=== PATIENT | male | born 1990 | race Two or more races ===

== ENCOUNTER 2018-07-23 12:35 | Inpatient (IN) | payer MEDICAID, OTHER ==
--- NOTE | 2018-07-23 13:09 | ASMTLCPROG ---
Notes Note: Notes: CIS read and pt signed the Patient Rights while at [facility] and are on ED chart. Date Signed: 07/23/2018 01:09 PM Electronically Signed By:Lucien Gamino
--- NOTE | 2018-07-23 14:00 | EDPHY ---
H & P Smoking Status: Never smoked Time Seen by Provider: 07/23/18 13:43 HPI/ROS: Chief complaint. Overdose HPI. 27-year-old male presents emergency department on an M1 hold after taking for Wellbutrin tablets. He says cocaine and alcohol as well. He was doing this to harm himself and has suicide ideation. He has no chest discomfort or trouble breathing. No abdominal pain or vomiting. Ingestion was early this morning ROS 10 systems were reviewed and negative with the exception of the elements mentioned in the history of present illness (Ramone Rust) Past Medical/Surgical History: Anxiety (Ramone Rust) Social History: Single, nonsmoker, recent alcohol (Ramone Rust) Physical Exam: General Appearance: Alert well-developed male mild distress vital signs are stable Eyes: Pupils equal and round no pallor or injection. ENT, Mouth: Mucous membranes are moist. Respiratory: There are no retractions, lungs are clear to auscultation. Cardiovascular: Regular rate and rhythm. Gastrointestinal: Abdomen is soft and nontender, no masses, bowel sounds normal. Neurological: Awake and alert, sensory and motor exams grossly normal. Skin: Warm and dry, no rashes. Musculoskeletal: Neck is supple nontender. Extremities symmetrical, full range of motion. Psychiatric: Patient is oriented X 3, there is no agitation. (Ramone Rust) Constitutional: Initial Vital Signs Temperature (C) 36.6 C 07/23/18 13:21 Heart Rate 84 07/23/18 13:21 Respiratory Rate 16 07/23/18 13:21 Blood Pressure 132/77 H 07/23/18 13:21 O2 Sat (%) 94 07/23/18 13:21 O2 Delivery Mode Room Air Allergies/Adverse Reactions: No Known Allergies Allergy (Verified 07/23/18 13:21) Home Medications: Medication Instructions Recorded ARIPiprazole [Abilify 10 mg (*)] 10 mg PO DAILY 01/12/16 Propranolol HCl [Inderal 40mg (*)] 40 mg PO 01/12/16 traZODone [traZODONE 100MG (*)] 100 mg PO 01/12/16 Medical Decision Making - Diagnostics EKG Interpretation: EKG interpreted by me shows normal sinus rhythm normal interval. Borderline left axis deviation. QRS is normal there is no significant ST elevation or depression. No arrhythmia. The rate is 83 (Ramone Rust) Other Provider: I assumed care of the patient at 3pm pending psychiatric disposition. Update 9:00 p.m.: The patient has been accepted for inpatient psychiatric hospitalization here at [facility] by Dr. Berry. I have filled out the EMTALA transfer form. (Archie Robb) Care Turn Over: Dr. Robb at 1500 (Ramone Rust) - Data Points Laboratory Results: Laboratory Results 07/23/18 12:45 07/23/18 12:45 07/23/18 07/23/18 07/23/18 15:15 12:45 12:45 WBC 6.53 10^3/uL 10^3/uL (3.80-9.50) RBC 5.75 10^6/uL 10^6/uL (4.40-6.38) Hgb 16.3 g/dL g/dL (13.7-17.5) Hct 49.5 % % (40.0-51.0) MCV 86.1 fL fL (81.5-99.8) MCH 28.3 pg pg (27.9-34.1) MCHC 32.9 g/dL g/dL (32.4-36.7) RDW 13.9 % % (11.5-15.2) Plt Count 319 10^3/uL 10^3/uL (150-400) MPV 9.0 fL fL (8.7-11.7) Neut % (Auto) 60.7 % % (39.3-74.2) Lymph % (Auto) 28.0 % % (15.0-45.0) [place] % (Auto) 8.7 % % (4.5-13.0) Eos % (Auto) 1.8 % % (0.6-7.6) Baso % (Auto) 0.6 % % (0.3-1.7) Nucleat RBC Rel Count 0.0 % % (0.0-0.2) Absolute Neuts (auto) 3.96 10^3/uL 10^3/uL (1.70-6.50) Absolute Lymphs (auto) 1.83 10^3/uL 10^3/uL (1.00-3.00) Absolute Monos (auto) 0.57 10^3/uL 10^3/uL (0.30-0.80) Absolute Eos (auto) 0.12 10^3/uL 10^3/uL (0.03-0.40) Absolute Basos (auto) 0.04 10^3/uL 10^3/uL (0.02-0.10) Absolute Nucleated RBC 0.00 10^3/uL 10^3/uL (0-0.01) Immature Gran % 0.2 % % (0.0-1.1) Immature Gran # 0.01 10^3/uL 10^3/uL (0.00-0.10) Sodium 140 mEq/L mEq/L (135-145) Potassium 3.8 mEq/L mEq/L (3.5-5.2) Chloride 112 mEq/L H mEq/L (97-110) Carbon Dioxide 23 mEq/l mEq/l (22-31) Anion Gap 5 mEq/L L mEq/L (6-14) BUN 10 mg/dL mg/dL (7-23) Creatinine 0.7 mg/dL mg/dL (0.7-1.3) Estimated GFR > 60 Glucose 70 mg/dL mg/dL (70-100) Calcium 7.6 mg/dL L mg/dL (8.5-10.4) Urine Opiates Screen NEGATIVE (NEGATIVE) Acetaminophen < 10 mcg/mL L mcg/mL (10-30) Urine Barbiturates NEGATIVE (NEGATIVE) Ur Phencyclidine Scrn NEGATIVE (NEGATIVE) Ur Amphetamine Screen NEGATIVE (NEGATIVE) U Benzodiazepines Scrn NEGATIVE (NEGATIVE) Urine Cocaine Screen NEGATIVE (NEGATIVE) U Marijuana (THC) Screen NEGATIVE (NEGATIVE) Ethyl Alcohol < 10 mg/dL mg/dL (0-10) Departure - Departure Disposition: [facility] IP Clinical Impression: Suicidal ideation Condition: Good Referrals: NONE *PRIMARY CARE P,. [Primary Care Provider] - As per Instructions
[2018-07-23 14:02] LABS: PLATELET COUNT 319 10^3/uL (150-400)
--- NOTE | 2018-07-23 15:03 | CPEKG ---
Test Reason : OPEN Blood Pressure : / mmHG Vent. Rate : 083 BPM Atrial Rate : 083 BPM P-R Int : 151 ms QRS Dur : 085 ms QT Int : 357 ms P-R-T Axes : 015 -27 002 degrees QTc Int : 420 ms Sinus rhythm Borderline left axis deviation ST elev, probable normal early repol pattern Confirmed by Yojana Rust ([id number]) on 07/23/2018 3:03:02 PM Referred By: YOJANA RUST Confirmed By:Yojana Rust
[2018-07-23] MEDS ORDERED: OLANZapine DISINTEGR 5 MG TAB PO PRN (23:28)
[2018-07-23] MEDS ORDERED: NICOTINE POLACRILEX 2 MG GUM B PRN (23:28)
[2018-07-23] MEDS ORDERED: ACETAMINOPHEN 325 MG TAB PO PRN (23:28)
[2018-07-23] MEDS ORDERED: MAG HYDROX/AL HYDROX/SIMETH 30 ML UDCUP PO PRN (23:28)
[2018-07-23] MEDS ORDERED: MAGNESIUM HYDROXIDE 30 ML UDCUP PO PRN (23:28)
[2018-07-23] MEDS ORDERED: QUEtiapine FUMARATE 200 MG TAB ONE (23:31)
[2018-07-23] MEDS: QUEtiapine FUMARATE 200 MG TAB PO SCH (23:35)
[2018-07-24] MEDS ORDERED: RISPERIDONE 1 MG ODT TAB SL ONE (12:17)
--- NOTE | 2018-07-24 12:44 | ASMTBHMTP ---
Master Treatment Plan Master Treatment Plan Answers: Mood Instability with for: Psychosis Date: 07/24/2018 Diagnosis on Admission: Schizophrenia Expected length of stay: 7 Reason for admission: Notes: Per ED report: "Ct. presentedat the ED on an M1 hold after taking overdose of Wellbutrin. He says cocaine and alcohol as well. He was doing this to harm himself and has suicide ideation". Patient's stated presenting problems: Notes: "I was taking pills, I took a lot of them". Patient's goals for treatment: Notes: Ct. unable to answer. Patient's strengths: Notes: Ct. unable to answer. Identify supports outside of hospital: Notes: Uncle- Aubrey Discharge criteria: Notes: Ct. will demonstrate more stable mood by discharge. Initial disposition plan/considerations: Notes: Ct. will participate in unit activities. Master Treatment Plan Required Signatures Psychiatrist signature: Answers: Willy Fletcher, WILLAMP: RN on-shift signature: Answers: RN: Patient signature: Answers: Patient: Date Signed: 07/24/2018 12:44 PM Electronically Signed By:Yue Santiago
--- NOTE | 2018-07-24 13:07 | ASMTCMCOM ---
CM Note CM Note Notes: CC met with ct. to develop MTP. Ct. presented with very flat affect, delayed respond and difficulty formulating thoughts. He answered most questions with "I don't Know". He reported that his main support system is his uncle which he claimed he lives with. He refused to sign a LIV for uncle. Date Signed: 07/24/2018 01:06 PM Electronically Signed By:Yue Santiago
--- NOTE | 2018-07-24 13:42 | BAPA ---
[f rep st] ADMISSION PSYCHIATRIC ASSESSMENT DATE OF SERVICE: 07/24/2018 CHIEF COMPLAINT: "I don't know. I drank some medications." HISTORY OF PRESENT ILLNESS: From the ED note dated 07/23/2018, patient presented to the emergency department on an M1 hold after taking Wellbutrin tablets. Patient reported recent use of cocaine and alcohol. Patient reported he was doing this to harm himself and reported suicidal ideation. Patient is currently homeless. He has been staying with various family members and with friends since discharged from [facility] on 07/09/2018. Patient is unemployed. Patient self presented at the walk-in clinic with suicidal ideation. Reported that he had overdosed on medications morning prior to presenting to the walk-in clinic. Patient reported command auditory hallucinations to kill himself. Patient was unable to identify the medications and the amount he took and overdose, and stated he vomited them up. Patient requested inpatient psychiatric treatment. Patient was recently assessed at the walk-in clinic on 06/27/2018 after his parents brought him to the walk-in clinic after having broken windows in their apartment on 06/26/2018. Parents were concerned patient expressed suicidal ideation. At that time, patient reported no plan or intent to attempt suicide. Patient had broken windows on 06/26/2018 and reported he wanted to break windows again today because he felt extremely anxious. Patient reported he wanted to break the windows because he saw someone breaking windows on TV to reduced their anxiety. Patient reported he did not get along well with his parents. Patient was admitted to [facility] from the walk-in clinic and discharged on 07/09/2018. Patient presented to the walk- in clinic prior to this admission, was preoccupied, confused, and responding to internal stimuli. Patient had difficulty answering questions, and the accuracy of his responses was unclear. Patient did not return to his parent's home following discharge and had been staying with family members and more recently friends. Patient last saw his outpatient psychiatrist, Dr. Gonzalez on 2018 at [email or web address]. 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 PAST PSYCHIATRIC HISTORY,: Patient has been in outpatient therapy with [facility] since 04/04/2018. Parents reported that patient has not been psychiatrically hospitalized. Patient has a history of auditory hallucinations. Patient reported first auditory hallucinations at age 22. Reported history of feeling "weird and paranoid" during high school. Reported that he felt like everyone around him was looking at him. ALLERGIES: No known allergies. CURRENT MEDICATIONS: 1. Tylenol 650 mg p.o. q.4 hours p.r.n. 2. Ativan 0.5-1 mg p.o. q.4 hours p.r.n. 3. Maalox syrup 30 mL p.o. q.6 hours p.r.n. 4. Milk of magnesia 30 mL p.o. daily p.r.n. 5. Nicorette gum 2 mg q.1 hour p.r.n. 6. Zyprexa 5-10 mg p.o. q.6 hours p.r.n. 7. Seroquel 400 mg p.o. at bedtime. 8. Risperidone 1 mg p.o. q. now. PAST MEDICAL HISTORY: Patient reported having no health issues. Patient denied any allergies. We will continue to gather past medical history throughout the course of the patient's hospitalization. SOCIAL HISTORY: Patient reports no current social supports. Patient reports he was recently in [place] with his mother and would like to return to [place]. Patient reports sexual orientation as heterosexual. Patient currently and most recently lived with his parents who are Dominican-speaking. SUBSTANCE USE HISTORY: Patient reports substance as use of cocaine 1-2 times per week. Patient does not report amount of cocaine use. Patient reports most recently used cocaine prior to this admission. Patient reports no other substance use. Will continue to gather patient history of substance use throughout the course of the patient's hospitalization. FAMILY PSYCHIATRIC HISTORY: Patient reports 2 family members have a diagnosis of schizophrenia. Patient reports no family history of substance abuse. We will continue to gather family psychiatric history throughout the course of the patient's hospitalization. ADMISSION LABS AND STUDIES: 1. CBC within normal limits. 2. BMP within normal limits except chloride was elevated at 112. Anion gap was low at 5. 3. Hemoglobin A1c within normal limits at 5.5. 4. Calcium was low at 7.6. 5. Liver function within normal limits. 6. Lipid panel within normal limits except cholesterol was low at 139, HDL cholesterol was low at 33. 7. Toxicology screen was non-negative for all substances screenED and negative for ethyl alcohol. MENTAL STATUS EXAM: The patient is a well-nourished male looking stated chronological age. Attire is inappropriate. Dress is hospital garb and is disheveled. Grooming status is appropriate. Ambulation is independent. Gait is normal and coordinated. Posture is normal and relaxed. Eye contact is inappropriate, avoided. At times looking at the floor, distractible. At times , also looking at the ceiling. Motor activity is appropriate with purposeful, organized, coordinated movements with no involuntary movements noted. Attitude is uncooperative. The patient is guarded, defensive, and distracted. The patient appears distractible and does not relate well to this interviewer. Language production is un-spontaneous. Rate is hesitant. Latency response is prolonged with monotone, low volume. Amount is monosyllabic to sparse. Articulation is clear, at times somewhat mumbled. The patient reports mood as okay with constricted, flat, and incongruent affect. The patient's thought process is nonlinear and illogical. Thought blocking and disorganized. The patient does not report suicidal or homicidal thoughts, ideas, or plans. The patient reports auditory hallucinations. Patient denies visual hallucinations. The patient denies delusions. The patient appears to be attending to internal stimuli. The patient is oriented to person. The patient's attention and concentration are poor. The patient's insight and judgment are poor. The patient does not report undesirable side effects from current medications. DIAGNOSES: Based on the patient's history and current presentation, the patient 's diagnosis is: 1. Schizophrenia. 2. Homelessness. 3. Stimulant use disorder. 4. Cocaine use disorder. 5. Rule out stimulant induced psychosis. FORMULATION: The patient is a 27-year-old male, single, unemployed most recently living with various friends and family members. The patient reports to be homeless and presents to the hospital involuntarily due to a risk to harm himself and is currently on an M1 hold. The patient requires continued inpatient care because of current acute psychosis and recent suicidal ideation with attempt by overdose. The patient presents with problems of psychosis that has steadily been increasing over the past several weeks. Patient's life has been affected by these problems including recent suicide attempt by overdose. The exacerbation of symptoms was preceded by the potential medication nonadherence and use of cocaine. The patient has a past psychiatric history of psychosis, most recently treated by [facility] on an outpatient basis. Response to treatment has been poor. The patient is a high suicide safety risk due to current acute psychosis, recent suicidal ideation with attempt by overdose. Protective factors while hospitalized include ongoing safety checks, active involvement in treatment and support from our treatment team. Patient could benefit from inpatient hospitalization for safety, crisis stabilization, and medication evaluation. PLAN: 1. Psychotropic medications: After reviewing options, risks, and benefits with the patient, patient agrees to continue medications listed above. No other medication changes at this time as more time is needed to determine ongoing tolerability and efficacy. Plan is to continue to observe patient for response and side effects from medications, and ongoing monitoring and evaluation. 2. Review with patient informed consent and recommendations for psychotropic medication treatment listed below 3. Labs: no additional labs at this time 4. Therapy: continue milieu and group therapy 5. Further investigation including gathering information from patients relatives and review of past case records to inform treatment plan. 6. Safety/Wellness plan and follow-up outpatient appointments to be established prior to discharge. Next steps are for patient to meet with nurse healthcare manager to plan a safe discharge plan and establish outpatient services for ongoing treatment. 7. Confer with inpatient treatment team regarding treatment plan. 8. Address psychosocial stressors by meeting with ocular care technician to establish discharge plan including referrals for outpatient services. 9. Legal status: M1 10. Consider discharge next week if patient is in stable condition, safe, and has a safe discharge plan. 11. Substance abuse interventions: cocaine ESTIMATED LENGTH OF STAY: 7-10 days PSYCHOTROPIC MEDICATION TREATMENT INFORMED CONSENT and RECOMMENDATIONS: Review nature of condition, diagnosis, and prognosis. Review nature and purpose of psychotropic medication treatment. Review type of psychotropic medications being ordered. Review risk and benefits of psychotropic medication treatment. Review probable length of time will need to take medications. Review risk and benefits of not undergoing psychotropic medication treatment. Review alternative treatments to psychotropic medications. Review psychotropic medications contraindications, drug-drug interactions, side effects, and importance of reporting any side effects to a psychiatric provider or nurse during inpatient hospitalization, and upon discharge to patients psychiatric outpatient provider, primary care provider, or other health direct care specialist. Review importance of asking a nurse, psychiatric provider, or primary care provider any questions or problems concerning the psychotropic medications. Verify patient understands the information that has been provided, and understands, accepts, and agrees to psychotropic medications. Review patients safety plan and importance of patient to communicate to staff while hospitalized if patient is ever a danger to self/others, or unable to care for self, and upon discharge, the importance for patient to contact [facility] or 1, or go to the nearest emergency room, if patient is ever a danger to self/others, or unable to care for self. Recommend that upon discharge patient establish medication management treatment with a psychiatric provider, establishes routine therapy appointments, and follow-up with primary care provider. Verify patient understands and agrees to these recommendations. /[id number]/MODL MTDD
--- NOTE | 2018-07-24 15:11 | PDMN ---
Medical Necessity Medical necessity: Pt meets IP criteria per & THIERNO B-[id number]; est los >2 mn for eval/tx of schizophrenia w/acute psychosis & recent suicidal ideation w/ attempted overdose; pt on M! hold due to risk of harm to self; admit for safety , crisis stabilization & med management; hx homelessness; per H&P & order
[2018-07-24] MEDS: QUEtiapine FUMARATE 200 MG TAB PO SCH (20:26)
--- NOTE | 2018-07-24 21:07 | PDHOSCONS ---
History and Physical - Chief Complaint medical mgmt - History of Present Illness This is a 27 yo male that presented to the ED with auditory hallucinations and suicidal ideations and requested hospitalization at behavioral health. He is seen under an M1 hold for suicidal ideations at the behavioral unit. He has a hx of substance abuse, mainly cocaine and some ETOH but otherwise no significant past medical history. He has been evaluated by Psychiatry and per their note he is being treated for Schizophrenia with acute psychosis. He reports that he has a big heart and that he sometimes has difficulty with breathing during exercise and leg swelling. However he denies current pedal edema or sob or hx of cardiomyopathy. He admits to tobacco use he has been afebrile. he does not have any constipation or suicidal ideations history is difficult due to the pts acute psychiatrical illness. He has a hard time with eye contact or answering question consultation was performed in Uzbek which the pt requested History Information - Allergies/Home Medication List Allergies/Adverse Reactions: No Known Allergies Allergy (Verified 07/23/18 13:21) Home Medications: Quetiapine Fumarate [Seroquel Xr] 800 mg PO HS 07/23/18 [Last Taken Unknown] buPROPion XL [Wellbutrin Xl] 150 mg PO DAILY 07/23/18 [Last Taken Unknown] I have personally reviewed and updated: medical history, social history - Social History Smoking Status: Current every day smoker Review of Systems Review of Systems: ROS: 10pt was reviewed & negative except for what was stated in HPI & below Physical Exam Physical Exam: Temp Pulse Resp BP Pulse Ox 36.8 C 92 14 145/80 H 95 07/23/18 23:11 07/23/18 23:11 07/23/18 23:11 07/23/18 23:11 07/23/18 23:11 Constitutional: no apparent distress Eyes: PERRL, EOMI Ears, Nose, Mouth, Throat: moist mucous membranes, hearing normal Cardiovascular: regular rate and rhythym, No edema Respiratory: no respiratory distress, no rales or rhonchi, clear to auscultation Gastrointestinal: normoactive bowel sounds, soft, non-tender abdomen Skin: warm Musculoskeletal: full muscle strength Neurologic: AAOx3 Psychiatric: interacting appropriately, not anxious, not encephalopathic Lymph, Heme, Immunologic: No petechiae Lab Data & Imaging Review 07/23/18 12:45 07/23/18 12:45 WBC 6.53 10^3/uL (3.80-9.50) 07/23/18 12:45 RBC 5.75 10^6/uL (4.40-6.38) 07/23/18 12:45 Hgb 16.3 g/dL (13.7-17.5) 07/23/18 12:45 Hct 49.5 % (40.0-51.0) 07/23/18 12:45 MCV 86.1 fL (81.5-99.8) 07/23/18 12:45 MCH 28.3 pg (27.9-34.1) 07/23/18 12:45 MCHC 32.9 g/dL (32.4-36.7) 07/23/18 12:45 RDW 13.9 % (11.5-15.2) 07/23/18 12:45 Plt Count 319 10^3/uL (150-400) 07/23/18 12:45 MPV 9.0 fL (8.7-11.7) 07/23/18 12:45 Neut % (Auto) 60.7 % (39.3-74.2) 07/23/18 12:45 Lymph % (Auto) 28.0 % (15.0-45.0) 07/23/18 12:45 [place] % (Auto) 8.7 % (4.5-13.0) 07/23/18 12:45 Eos % (Auto) 1.8 % (0.6-7.6) 07/23/18 12:45 Baso % (Auto) 0.6 % (0.3-1.7) 07/23/18 12:45 Nucleat RBC Rel Count 0.0 % (0.0-0.2) 07/23/18 12:45 Absolute Neuts (auto) 3.96 10^3/uL (1.70-6.50) 07/23/18 12:45 Absolute Lymphs (auto) 1.83 10^3/uL (1.00-3.00) 07/23/18 12:45 Absolute Monos (auto) 0.57 10^3/uL (0.30-0.80) 07/23/18 12:45 Absolute Eos (auto) 0.12 10^3/uL (0.03-0.40) 07/23/18 12:45 Absolute Basos (auto) 0.04 10^3/uL (0.02-0.10) 07/23/18 12:45 Absolute Nucleated RBC 0.00 10^3/uL (0-0.01) 07/23/18 12:45 Immature Gran % 0.2 % (0.0-1.1) 07/23/18 12:45 Immature Gran # 0.01 10^3/uL (0.00-0.10) 07/23/18 12:45 Sodium 140 mEq/L (135-145) 07/23/18 12:45 Potassium 3.8 mEq/L (3.5-5.2) 07/23/18 12:45 Chloride 112 mEq/L (97-110) H 07/23/18 12:45 Carbon Dioxide 23 mEq/l (22-31) 07/23/18 12:45 Anion Gap 5 mEq/L (6-14) L 07/23/18 12:45 BUN 10 mg/dL (7-23) 07/23/18 12:45 Creatinine 0.7 mg/dL (0.7-1.3) 07/23/18 12:45 Estimated GFR > 60 07/23/18 12:45 Glucose 70 mg/dL (70-100) 07/23/18 12:45 Hemoglobin A1c 5.5 % (4.0-6.0) 07/23/18 13:58 Estim Average Glucose 111 mg/dL (68-126) 07/23/18 13:58 Calcium 7.6 mg/dL (8.5-10.4) L 07/23/18 12:45 Total Bilirubin 0.2 mg/dL (0.1-1.4) 07/23/18 12:45 Conjugated Bilirubin 0.2 mg/dL (0.0-0.5) 07/23/18 12:45 Unconjugated Bilirubin 0.0 mg/dL (0.0-1.1) 07/23/18 12:45 AST 20 IU/L (17-59) 07/23/18 12:45 ALT 27 IU/L (21-72) 07/23/18 12:45 Alkaline Phosphatase 50 IU/L (38-126) 07/23/18 12:45 Total Protein 6.5 g/dL (6.3-8.2) 07/23/18 12:45 Albumin 3.5 g/dL (3.5-5.0) 07/23/18 12:45 Triglycerides 65 mg/dL (40-150) 07/23/18 12:45 Cholesterol 139 mg/dL (140-200) L 07/23/18 12:45 Cholesterol Risk Factr 0.8 (0.2-1.0) 07/23/18 12:45 LDL Cholesterol, Calc 93 mg/dL (60-100) 07/23/18 12:45 LDL Risk Factor 1.0 (0.2-1.0) 07/23/18 12:45 VLDL Cholesterol 13 mg/dL (8-25) 07/23/18 12:45 Non-HDL Cholesterol 106 mg/dL (90-129) 07/23/18 12:45 HDL Cholesterol 33 mg/dL (40-70) L 07/23/18 12:45 LDL/HDL Ratio 2.82 RATIO (1.00-3.64) 07/23/18 12:45 Cholesterol/HDL Ratio 4.21 RATIO (1.00-4.97) 07/23/18 12:45 Urine Opiates Screen NEGATIVE (NEGATIVE) 07/23/18 15:15 Acetaminophen < 10 mcg/mL (10-30) L 07/23/18 12:45 Urine Barbiturates NEGATIVE (NEGATIVE) 07/23/18 15:15 Ur Phencyclidine Scrn NEGATIVE (NEGATIVE) 07/23/18 15:15 Ur Amphetamine Screen NEGATIVE (NEGATIVE) 07/23/18 15:15 U Benzodiazepines Scrn NEGATIVE (NEGATIVE) 07/23/18 15:15 Urine Cocaine Screen NEGATIVE (NEGATIVE) 07/23/18 15:15 U Marijuana (THC) Screen NEGATIVE (NEGATIVE) 07/23/18 15:15 Ethyl Alcohol < 10 mg/dL (0-10) 07/23/18 12:45 Assessment & Plan Assessment: #Schizophrenia with acute psychosis, suicidal ideations, auditory hallucinations -mgmt per primary #HTN, monitor, no meds for now #Tobacco abuse disorder, on nicotine replacement therapy #possible overdose with Wellbutrin #Drub abuse: Cocaine, ETOH -not with active intoxication #Homelessnes #Reported cardiomyopathy: he does not have any physical exam evidence of this. no e/o volume overload thanks for this consult. we will follow along
[2018-07-25] MEDS ORDERED: QUEtiapine FUMARATE 300 MG TAB PO SCH (06:46)
--- NOTE | 2018-07-25 08:32 | SOAPPROG ---
SOAP Progress Note Assessment/Plan: Assessment: Schizophrenia complicated by substance use; Stimulant Use Disorder, cocaine. No improvement noted (see subjective/objective note). Patient is not safe to discharge at this time as patient continues to exhibit signs of psychosis, and express psychosis symptoms. Patient requires continued inpatient care because of current psychosis, and requires inpatient level of care to stabilize to no longer be gravely disabled due to mental illness. Patient is unable to communicate his basic needs, unable to test reality, and continues to require prompting and direction from staff for ADLs. Patient exhibits inability to provide for himself, neglecting self-care, withdrawn from social interactions, currently shows inability to maintain any appropriate aspect of personal responsibility as an adult, patient becomes agitated and irritable easily and continues exhibited irritable behavior toward staff. Support system has inability to manage functional impairment at lower level of care. Patient could benefit from continued inpatient hospitalization for crisis stabilization , safety, and medication evaluation. Plan: 1. Psychotropic medications: After reviewing options, risks, and benefits patient agrees to continue current medications with following changes: increase Risperidone M-tab to 2 mg po QD and decrease Seroquel to 300 mg po QHS for taper to discontinue. No other medication changes at this time as more time is needed to determine ongoing tolerability and efficacy. Plan is to continue to observe patient for response and side effects from medications, and ongoing monitoring and evaluation. 2. Review with patient informed consent and recommendations for psychotropic medication treatment listed below 3. Labs: no additional labs at this time 4. Therapy: continue milieu and group therapy 5. Further investigation including gathering information from patients relatives and review of past case records to inform treatment plan. 6. Safety/Wellness plan and follow-up outpatient appointments to be established prior to discharge. Next steps are for patient to meet with career based intervention coordinator to plan a safe discharge plan and establish outpatient services for ongoing treatment. 7. Confer with inpatient treatment team regarding treatment plan. 8. Psychosocial stressors addressed through manager rn case 9. Legal status: M1 10. Consider discharge next week if patient is in stable condition, safe, and has a safe discharge plan. 11. Substance abuse interventions: cocaine PSYCHOTROPIC MEDICATION TREATMENT INFORMED CONSENT and RECOMMENDATIONS: Review nature of condition, diagnosis, and prognosis. Review nature and purpose of psychotropic medication treatment. Review type of psychotropic medications being ordered. Review risk and benefits of psychotropic medication treatment. Review probable length of time patient will need to take medications. Review risk and benefits of not undergoing psychotropic medication treatment. Review alternative treatments to psychotropic medications. Review psychotropic medications contraindications, drug-drug interactions, side effects, and importance of reporting any side effects to a psychiatric provider or nurse during inpatient hospitalization, and upon discharge to patients psychiatric outpatient provider, primary care provider, or other health hiv/aids care nurse. Review importance of asking a nurse, psychiatric provider, or primary care provider any questions or problems concerning the psychotropic medications. Verify patient understands the information that has been provided, and understands, accepts, and agrees to psychotropic medications. Review patients safety plan and importance of patient to report to staff while hospitalized if patient is ever a danger to self/others, or unable to care for self, and upon discharge, the importance for patient to contact [facility] or [facility], or go to the nearest emergency room, if patient is ever a danger to self/others, or unable to care for self. Recommend that upon discharge patient establish medication management treatment with a psychiatric provider, establishes routine therapy appointments, and follow-up with primary care provider. Verify patient understands and agrees to these recommendations. 07/25/18 08:33 Subjective: Following up with patient for evaluation of psychosis and safety. Patient reports, "Doing okay I guess. Voices are still there. Hard to explain." Patient expresses the following psychiatric symptoms auditory hallucinations. Patient does not report undesirable side effects from the medications, and agrees to continue current medications. Patient agrees to increase Risperidone M-tab to 2 mg po QD and decrease Seroquel to 300 mg po QHS for taper to discontinue. Patient describes getting 8 hours of sleep. Objective: Vital Signs Temp Pulse Resp BP Pulse Ox 36.5 C 90 18 130/58 H 95 07/25/18 06:00 07/25/18 06:00 07/25/18 06:00 07/25/18 06:00 07/25/18 06:00 NURSING REPORT: Consulted with nursing for update on patients progress in treatment. Nurses report patient is not engaged in treatment, is not attending groups, slept 8 hours, expresses the following psychiatric symptoms: anxiety, exhibits the following psychiatric symptoms: disorganized, thought blocking, withdrawn; patient spent majority of the time isolated in his room; is eating all meals, is agreeable to medications and taking as prescribed with no report of side effects, with no s/s of EPS/akathisia, and denies SI/HI, reports AH, denies VH, and denies delusions. MSE: The patient is a well-nourished male looking stated chronological age. Attire is appropriate dress is casual. Grooming status is inappropriate and disheveled. Ambulation is independent. Gait is normal and coordinated. Posture is normal. Eye contact is inappropriate and staring. Motor activity is appropriate with purposeful, organized, coordinated movements; with no involuntary movements. Attitude is uncooperative, defensive and guarded at times. Patient appears distractible and does not relate well to this interviewer. Language production is spontaneous. Rate is hesitant. Latency of response is prolonged. Articulation is clear. Patient reports mood as okay with flat, constricted, and inappropriate affect. Patients thought process is disorganized, non-linear and illogical, with loose associations, nonsensical, and thought blocking. Patient does not report suicidal/homicidal thoughts, ideas, or plans. Patient denies auditory, visual hallucinations. Patient reports delusions. Patient does not appear to be attending to internal stimuli. Patients attention and concentration are poor. Patient is oriented to person, place, and time. Patients insight is poor. Patients judgment is poor. SUBSTANCE ABUSE BRIEF INTERVENTION: Brief intervention regarding the risks of cocaine abuse is provided to patient with goal to reduce the risk of harm that could result from the continued use of cocaine, with the general aim to investigate the problem, raise awareness of problem, develop a solution with the patient, recommend a specific change or activity, and motivate the patient toward change. Assess substance abuse behavior and give supportive advice about harm reduction, recommend a reduction in hazardous/at-risk consumption patterns, and facilitate referrals for additional specialized treatment with home care attendant. Intermediate goal is for the patient to quit/decrease frequency of use/attend a NA/AA meeting. Intervention focus on intermediate goals to allow for more immediate success in the treatment process to keep the patient motivated. Review following with patient: Cocaine use risks: Short-term : erratic and violent behavior, panic attacks, paranoia, psychosis; heart rhythm problems, heart attack; stroke, seizure, coma. Long-term: Loss of sense of smell, nosebleeds, nasal damage and trouble swallowing from snorting; infection and of bowel tissue from decreased blood flow; poor nutrition and weight loss; lung damage from smoking. OUTPATIENT SUBSTANCE ABUSE TREATMENT: Patient referred to outpatient provider and treatment for continued treatment related to substance abuse. - Time Spent With Patient Time Spent With Patient: 15 minutes, met with patient individually. 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
[2018-07-25] MEDS ORDERED: RISPERIDONE 1 MG ODT TAB SL SCH (09:00)
--- NOTE | 2018-07-25 11:46 | ASMTCMCOM ---
CM Note CM Note Notes: CC checked in with ct. Ct. continues to isolate in his room and is coming out mostly for meals. Ct. continues to report SI. Parents came to visit ct. yesterday but her refused to meet them. He told CC that he doesn't want to see his dad but was unable to explain why. Date Signed: 07/25/2018 11:46 AM Electronically Signed By:Yue Santiago
--- NOTE | 2018-07-26 07:55 | SOAPPROG ---
SOAP Progress Note Assessment/Plan: Assessment: Schizophrenia complicated by substance use; Stimulant Use Disorder, cocaine. No improvement noted (see subjective/objective note). Patient is not safe to discharge at this time as patient continues to exhibit signs of psychosis, and express psychosis symptoms. Patient requires continued inpatient care because of current psychosis, and requires inpatient level of care to stabilize to no longer be gravely disabled due to mental illness. Patient is unable to communicate his basic needs, unable to test reality, and continues to require prompting and direction from staff for ADLs. Patient exhibits inability to provide for himself, neglecting self-care, withdrawn from social interactions, currently shows inability to maintain any appropriate aspect of personal responsibility as an adult, patient becomes agitated and irritable easily and continues exhibited irritable behavior toward staff. Support system has inability to manage functional impairment at lower level of care. Patient could benefit from continued inpatient hospitalization for crisis stabilization , safety, and medication evaluation. Plan: 1. Psychotropic medications: After reviewing options, risks, and benefits patient agrees to continue current medications with following changes: increase Risperidone M-tab to 3 mg po QD and decrease Seroquel to 200 mg po QHS for taper to discontinue. No other medication changes at this time as more time is needed to determine ongoing tolerability and efficacy. Plan is to continue to observe patient for response and side effects from medications, and ongoing monitoring and evaluation. 2. Review with patient informed consent and recommendations for psychotropic medication treatment listed below 3. Labs: no additional labs at this time 4. Therapy: continue milieu and group therapy 5. Further investigation including gathering information from patients relatives and review of past case records to inform treatment plan. 6. Safety/Wellness plan and follow-up outpatient appointments to be established prior to discharge. Next steps are for patient to meet with healthcare advisory services manager to plan a safe discharge plan and establish outpatient services for ongoing treatment. 7. Confer with inpatient treatment team regarding treatment plan. 8. Psychosocial stressors addressed through case management coordinator 9. Legal status: M1 10. Consider discharge next week if patient is in stable condition, safe, and has a safe discharge plan. 11. Substance abuse interventions: cocaine PSYCHOTROPIC MEDICATION TREATMENT INFORMED CONSENT and RECOMMENDATIONS: Review nature of condition, diagnosis, and prognosis. Review nature and purpose of psychotropic medication treatment. Review type of psychotropic medications being ordered. Review risk and benefits of psychotropic medication treatment. Review probable length of time patient will need to take medications. Review risk and benefits of not undergoing psychotropic medication treatment. Review alternative treatments to psychotropic medications. Review psychotropic medications contraindications, drug-drug interactions, side effects, and importance of reporting any side effects to a psychiatric provider or nurse during inpatient hospitalization, and upon discharge to patients psychiatric outpatient provider, primary care provider, or other health managed care nurse. Review importance of asking a nurse, psychiatric provider, or primary care provider any questions or problems concerning the psychotropic medications. Verify patient understands the information that has been provided, and understands, accepts, and agrees to psychotropic medications. Review patients safety plan and importance of patient to report to staff while hospitalized if patient is ever a danger to self/others, or unable to care for self, and upon discharge, the importance for patient to contact [facility] or [facility], or go to the nearest emergency room, if patient is ever a danger to self/others, or unable to care for self. Recommend that upon discharge patient establish medication management treatment with a psychiatric provider, establishes routine therapy appointments, and follow-up with primary care provider. Verify patient understands and agrees to these recommendations. 07/26/18 07:54 Subjective: Following up with patient for evaluation of psychosis and safety. Patient reports, "Doing okay. Voices still there. Worse." Patient expresses the following psychiatric symptoms auditory hallucinations. Patient does not report undesirable side effects from the medications, and agrees to continue current medications. Patient agrees to increase Risperidone M-tab to 3 mg po QD and decrease Seroquel to 200 mg po QHS for taper to discontinue. Patient describes getting 8 hours of sleep. Objective: Vital Signs Temp Pulse Resp BP Pulse Ox 36.8 C 92 16 115/57 L 95 07/26/18 06:00 07/26/18 06:00 07/26/18 06:00 07/26/18 06:00 07/26/18 06:00 NURSING REPORT: Consulted with nursing for update on patients progress in treatment. Nurses report patient is not engaged in treatment, is not attending groups, slept 8 hours, expresses the following psychiatric symptoms: anxiety, exhibits the following psychiatric symptoms: disorganized, thought blocking, withdrawn; is eating all meals, is agreeable to medications and taking as prescribed with no report of side effects, with no s/s of EPS/akathisia, and denies SI/HI, reports AH, denies VH, and denies delusions. MSE: The patient is a well-nourished male looking stated chronological age. Attire is appropriate dress is casual. Grooming status is inappropriate and disheveled. Ambulation is independent. Gait is normal and coordinated. Posture is normal. Eye contact is inappropriate and staring. Motor activity is appropriate with purposeful, organized, coordinated movements; with no involuntary movements. Attitude is cooperative, defensive and guarded at times. Patient appears distractible and does not relate well to this interviewer. Language production is spontaneous. Rate is hesitant. Latency of response is prolonged. Articulation is clear. Patient reports mood as okay with flat, constricted, and inappropriate affect. Patients thought process is disorganized, non-linear and illogical, with loose associations, nonsensical, and thought blocking. Patient does not report suicidal/homicidal thoughts, ideas, or plans. Patient denies auditory, visual hallucinations. Patient reports delusions. Patient does not appear to be attending to internal stimuli. Patients attention and concentration are poor. Patient is oriented to person, place, and time. Patients insight is poor. Patients judgment is poor. SUBSTANCE ABUSE BRIEF INTERVENTION: Brief intervention regarding the risks of cocaine abuse is provided to patient with goal to reduce the risk of harm that could result from the continued use of cocaine, with the general aim to investigate the problem, raise awareness of problem, develop a solution with the patient, recommend a specific change or activity, and motivate the patient toward change. Assess substance abuse behavior and give supportive advice about harm reduction, recommend a reduction in hazardous/at-risk consumption patterns, and facilitate referrals for additional specialized treatment with healthcare customer service. Intermediate goal is for the patient to quit/decrease frequency of use/attend a NA/AA meeting. Intervention focus on intermediate goals to allow for more immediate success in the treatment process to keep the patient motivated. Review following with patient: Cocaine use risks: Short-term : erratic and violent behavior, panic attacks, paranoia, psychosis; heart rhythm problems, heart attack; stroke, seizure, coma. Long-term: Loss of sense of smell, nosebleeds, nasal damage and trouble swallowing from snorting; infection and of bowel tissue from decreased blood flow; poor nutrition and weight loss; lung damage from smoking. OUTPATIENT SUBSTANCE ABUSE TREATMENT: Patient referred to outpatient provider and treatment for continued treatment related to substance abuse. - Time Spent With Patient Time Spent With Patient: 15 minutes, met with patient individually. 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
[2018-07-26] MEDS: RISPERIDONE 1 MG ODT TAB SL SCH (08:27)
--- NOTE | 2018-07-26 14:26 | ASMTCMCOM ---
CM Note CM Note Notes: The patient presented as calm, cooperative, and with poor eye contact. He reported that he was feeling "dizzy" after starting new medication; nursing was advised. He also reported feeling "confusion" and having random bursts of "laughter." The patient reported that he receives outpatient treatment at [facility] in [place] and completed an LIV. This property underwriter discussed collateral with the [facility] Inpatient Liaison. Date Signed: 07/26/2018 02:25 PM Electronically Signed By:Safia Saucedo
[2018-07-26] MEDS: LORazepam 0.5 MG TAB PO PRN (16:16)
[2018-07-26] MEDS ORDERED: QUEtiapine FUMARATE 200 MG TAB PO SCH (21:00)
[2018-07-27] MEDS: RISPERIDONE 1 MG ODT TAB SL SCH (09:26)
[2018-07-27] MEDS: LORazepam 0.5 MG TAB PO PRN ×2 (12:41→18:31)
[2018-07-27] MEDS ORDERED: QUEtiapine FUMARATE 100 MG TAB PO SCH (18:14)
--- NOTE | 2018-07-27 18:22 | SOAPPROG ---
SOAP Progress Note Assessment/Plan: Assessment: 27-year-old male presents emergency department on an M1 hold after taking for Wellbutrin tablets. He says cocaine and alcohol as well. He was doing this to harm himself and has suicide ideation. EKG was NSR. WEEKEND PLAN: 07/27/18 18:[address] patient on M1 hold. He was made voluntary on Sunday by Willy Fletcher, and was asking to discharge today. He remains acutely psychotic, endorsing CAH to harm himself, with recent OD attempt on 07/23/18. Patient is gravely disabled and not safe to leave hospital. 2. Patient is compliant with meds and denies any SE's from Risperdal. MD does not note any s/s of EPS or dystonia. 3. Hospitalist noted elevated BP, and recommends continued monitoring for now. 4. Will need f/u with [facility] at discharge. Subjective: Patient is sitting in rocking chair. Earlier he was telling staff he wanted to leave. Other times, he says he's OK to stay. MD placed patient on M1 hold b/c he remains acutely psychotic and had recent CAH telling him to kill himself which is why he took OD of Wellbutrin while drinking ETOH and using cocaine. When asked about SI today, patient said he was having a "little bit," but later rated himself a 0 out of 10. Objective: Vital Signs Temp Pulse Resp BP Pulse Ox 36.4 C 100 16 112/64 95 07/27/18 06:00 07/27/18 06:00 07/27/18 06:00 07/27/18 06:00 07/27/18 06:00 MSE: Affect: Flat Mood: "Good" TP: Disorganized, difficulty completing sentences TC: "A little bit" of SI, but later said "zero" Perception: Endorsed AH today, but denies commands to hurt himself Insight/Judgment: Impaired - Time Spent With Patient Time Spent With Patient: 15" - Pending Discharge Pending Discharge Within 24 Hours: No Pending Discharge Within 48 Hours: No ICD10 Worksheet Patient Problems: Problems Problem Status Onset Alcohol use disorder, moderate, dependence Acute Cocaine abuse Acute Stimulant abuse Acute Stimulant-induced psychotic disorder with hallucinations Acute Suicidal ideation Acute Unspecified psychosis Acute
[2018-07-28] MEDS: RISPERIDONE 1 MG ODT TAB SL SCH (08:29)
[2018-07-28] MEDS: LORazepam 0.5 MG TAB PO PRN (12:35)
--- NOTE | 2018-07-28 15:35 | ASMTCMCOM ---
CM Note CM Note Notes: According to [facility] staff, the patient requested to see a escapement matcher. This sign writer letterer or painter asked the patient whether he would like to speak in vietnamese or czech. The patient requested to speak in vietnamese; this sign writer letterer or painter and the patient utilized an processing tech for this interaction. The patient reported that "everything is good." He asked to be notified when he will be able to discharge. He stated, "I'm feeling like I would like to go home." He reported he has been living with relatives in [place]. The patient reported that he has not had contact with his parents or relatives because he "doesn't like talking to them or visiting with them in these situations." The patient denied SI, HI, or A/VH. The patient was observed giggling. Date Signed: 07/28/2018 03:34 PM Electronically Signed By:Safia Saucedo
--- NOTE | 2018-07-28 19:03 | SOAPPROG ---
SOAP Progress Note Assessment/Plan: Assessment: 27-year-old male presents emergency department on an M1 hold after taking for Wellbutrin tablets. He says cocaine and alcohol as well. He was doing this to harm himself and has suicide ideation. EKG was NSR. WEEKEND PLAN: 07/27/18 18:[address] patient on M1 hold. He was made voluntary on Sunday by Willy Fletcher, and was asking to discharge today. He remains acutely psychotic, endorsing CAH to harm himself, with recent OD attempt on 07/23/18. Patient is gravely disabled and not safe to leave hospital. 2. Patient is compliant with meds and denies any SE's from Risperdal. MD does not note any s/s of EPS or dystonia. 3. Hospitalist noted elevated BP, and recommends continued monitoring for now. 4. Will need f/u with [facility] at discharge. 07/28/18 19:00 1. Patient reports feeling anxious and wants to talk to his family on phone. He refused a family visit earlier in week b/c he doesn't want them to see him in hospital. However, tonight he allowed family to come visit and felt more relaxed and calm after. 2. CC spoke with patient's UOC. Family would prefer patient go live with his POCs in [place] after discharge. They can do better job supervising him than his AOC in [place]. They didn't know patient was using THC and cocaine and not taking his meds. They agree to monitor him and take him to his OP appt at [facility]. 3. Patient denies any AH/VH and SI today. 4. M1 expires on 07/30/18 Subjective: Patient came up to MD to ask if he can leave. He says he is feeling "anxious" and wants to talk to his parents. MD explained patient is on M1 hold, and treatment team wants to know patient has safe place to go when he leaves hospital. He says he can stay with his parents. He agreed to discuss it with them when they come for a visit tonight. After seeing his family tonight, patient felt much "better." Objective: Vital Signs Temp Pulse Resp BP Pulse Ox 36.6 C 92 15 117/65 95 07/28/18 06:00 07/28/18 06:00 07/28/18 06:00 07/28/18 06:00 07/28/18 06:00 MSE: Affect: Anxious at time, other times calm and relaxed Mood: "OK" "Anxious " TP: Linear, mostly TC: Denies any SI/HI, still guarded and possibly paranoid Perception: Denies any AH/VH Insight/Judgment: Poor - Time Spent With Patient Time Spent With Patient: 15" - Pending Discharge Pending Discharge Within 24 Hours: No Pending Discharge Within 48 Hours: No ICD10 Worksheet Patient Problems: Problems Problem Status Onset Alcohol use disorder, moderate, dependence Acute Cocaine abuse Acute Stimulant abuse Acute Stimulant-induced psychotic disorder with hallucinations Acute Suicidal ideation Acute Unspecified psychosis Acute
[2018-07-28] MEDS: QUEtiapine FUMARATE 100 MG TAB PO SCH (19:13)
[2018-07-29] MEDS ORDERED: PALIPERIDONE PALMITATE 234 MG/1.5 ML SYR IM ONE ×2 (07:02→10:15)
--- NOTE | 2018-07-29 08:33 | SOAPPROG ---
SOAP Progress Note Assessment/Plan: Assessment: Schizophrenia complicated by substance use; Stimulant Use Disorder, cocaine. Improvement noted (see subjective/objective note). Patient is not safe to discharge at this time as patient continues to exhibit signs of psychosis, and express psychosis symptoms. Patient requires continued inpatient care because of current psychosis, and requires inpatient level of care to stabilize to no longer be gravely disabled due to mental illness. Patient is unable to communicate his basic needs, unable to test reality, and continues to require prompting and direction from staff for ADLs. Patient exhibits inability to provide for himself, neglecting self-care, withdrawn from social interactions, currently shows inability to maintain any appropriate aspect of personal responsibility as an adult. Support system has inability to manage functional impairment at lower level of care. Patient could benefit from OLSON prior to discharge to improve adherence. Patient could benefit from continued inpatient hospitalization for crisis stabilization, safety, and medication evaluation. Plan: 1. Psychotropic medications: After reviewing options, risks, and benefits patient agrees to continue current medications and agrees to Invega Sustenna prior to discharge with first loading dose 234 mg IM today and second loading dose 156 mg IM on prior to discharge. No other medication changes at this time as more time is needed to determine ongoing tolerability and efficacy. Plan is to continue to observe patient for response and side effects from medications, and ongoing monitoring and evaluation. 2. Review with patient informed consent and recommendations for psychotropic medication treatment listed below 3. Labs: no additional labs at this time 4. Therapy: continue milieu and group therapy 5. Further investigation including gathering information from patients relatives and review of past case records to inform treatment plan. 6. Safety/Wellness plan and follow-up outpatient appointments to be established prior to discharge. Next steps are for patient to meet with director critical care to plan a safe discharge plan and establish outpatient services for ongoing treatment. 7. Confer with inpatient treatment team regarding treatment plan. 8. Psychosocial stressors addressed through casework manager 9. Legal status: M1 placed on 07/27/18 10. Consider discharge next week if patient is in stable condition, safe, and has a safe discharge plan. 11. Substance abuse interventions: cocaine PSYCHOTROPIC MEDICATION TREATMENT INFORMED CONSENT and RECOMMENDATIONS: Review nature of condition, diagnosis, and prognosis. Review nature and purpose of psychotropic medication treatment. Review type of psychotropic medications being ordered. Review risk and benefits of psychotropic medication treatment. Review probable length of time patient will need to take medications. Review risk and benefits of not undergoing psychotropic medication treatment. Review alternative treatments to psychotropic medications. Review psychotropic medications contraindications, drug-drug interactions, side effects, and importance of reporting any side effects to a psychiatric provider or nurse during inpatient hospitalization, and upon discharge to patients psychiatric outpatient provider, primary care provider, or other health reservoir caretaker. Review importance of asking a nurse, psychiatric provider, or primary care provider any questions or problems concerning the psychotropic medications. Verify patient understands the information that has been provided, and understands, accepts, and agrees to psychotropic medications. Review patients safety plan and importance of patient to report to staff while hospitalized if patient is ever a danger to self/others, or unable to care for self, and upon discharge, the importance for patient to contact [facility] or [facility], or go to the nearest emergency room, if patient is ever a danger to self/others, or unable to care for self. Recommend that upon discharge patient establish medication management treatment with a psychiatric provider, establishes routine therapy appointments, and follow-up with primary care provider. Verify patient understands and agrees to these recommendations. 07/29/18 08:35 Subjective: Following up with patient for evaluation of psychosis and safety. Patient reports, "Doing good, yep, doing good." Patient expresses the following psychiatric symptoms none. Patient does not report undesirable side effects from the medications, and agrees to continue current medications. Patient agrees to Invega Sustenna prior to discharge with first loading dose 234 mg IM today and second loading dose 156 mg IM on prior to discharge. Objective: Vital Signs Temp Pulse Resp BP Pulse Ox 36.4 C 96 15 118/60 95 07/29/18 06:00 07/29/18 06:00 07/29/18 06:00 07/29/18 06:00 07/29/18 06:00 NURSING REPORT: Consulted with nursing for update on patients progress in treatment. Nurses report patient is not engaged in treatment, is not attending groups, slept 8 hours, expresses the following psychiatric symptoms: anxiety, exhibits the following psychiatric symptoms: disorganized, thought blocking, withdrawn; is eating all meals, is agreeable to medications and taking as prescribed with no report of side effects, with no s/s of EPS/akathisia, and denies SI/HI, denies AH, denies VH, and denies delusions. MD REPORT FROM WEEKEND: placed on mental health hold; agrees to stay with POC after discharge. MSE: The patient is a well-nourished male looking stated chronological age. Attire is appropriate dress is casual. Grooming status is inappropriate and disheveled. Ambulation is independent. Gait is normal and coordinated. Posture is normal. Eye contact is inappropriate and staring. Motor activity is appropriate with purposeful, organized, coordinated movements; with no involuntary movements. Attitude is cooperative, defensive and guarded at times. Patient appears distractible and does not relate well to this interviewer. Language production is spontaneous. Rate is hesitant. Latency of response is prolonged. Articulation is clear. Patient reports mood as okay with flat, constricted, and inappropriate affect. Patients thought process is disorganized, non-linear and illogical, with loose associations, nonsensical, and thought blocking. Patient does not report suicidal/homicidal thoughts, ideas, or plans. Patient denies auditory, visual hallucinations. Patient reports delusions. Patient does not appear to be attending to internal stimuli. Patients attention and concentration are poor. Patient is oriented to person, place, and time. Patients insight is poor. Patients judgment is poor. SUBSTANCE ABUSE BRIEF INTERVENTION: Brief intervention regarding the risks of cocaine abuse is provided to patient with goal to reduce the risk of harm that could result from the continued use of cocaine, with the general aim to investigate the problem, raise awareness of problem, develop a solution with the patient, recommend a specific change or activity, and motivate the patient toward change. Assess substance abuse behavior and give supportive advice about harm reduction, recommend a reduction in hazardous/at-risk consumption patterns, and facilitate referrals for additional specialized treatment with health and social care teacher. Intermediate goal is for the patient to quit/decrease frequency of use/attend a NA/AA meeting. Intervention focus on intermediate goals to allow for more immediate success in the treatment process to keep the patient motivated. Review following with patient: Cocaine use risks: Short-term : erratic and violent behavior, panic attacks, paranoia, psychosis; heart rhythm problems, heart attack; stroke, seizure, coma. Long-term: Loss of sense of smell, nosebleeds, nasal damage and trouble swallowing from snorting; infection and of bowel tissue from decreased blood flow; poor nutrition and weight loss; lung damage from smoking. OUTPATIENT SUBSTANCE ABUSE TREATMENT: Patient referred to outpatient provider and treatment for continued treatment related to substance abuse. - Time Spent With Patient Time Spent With Patient: 15 minutes, met with patient individually. 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
[2018-07-29] MEDS: RISPERIDONE 1 MG ODT TAB SL SCH (08:35)
[2018-07-29] MEDS: LORazepam 0.5 MG TAB PO PRN (10:27)
--- NOTE | 2018-07-29 14:02 | ASMTBHFAM ---
Notes Note: Notes: Per Fawad, he was unable to visit the patient yesterday. The patient was visited by his mother and cousin. They reported to Fawad is "doing much better. His behavior is different from one week ago. He was able to make conversations." He expressed interest in looking for employment. The patient is still unwilling to speak to his father because he refused pay for the patient to move to [place]. The patient requested to speak in syriac with this contract technical writer; an high lighter was used. The patient reported that he feels "anxious" to return home and that he also felt "anxious" in the group he attended this morning. The patient denied SI, HI, A/VH. He was visited by his mother and cousin yesterday; he discussed living with his parents upon discharge and his family agreed that this would be appropriate. The patient denied interest in moving to [place] and reported that although he did not want to talk with his father at the time, he would be willing to talk with him. The patient expressed gratitude for receiving a Bible. The patient was observed using intermittent eye contact and infrequently giggling to himself. Date Signed: 07/29/2018 12:19 PM Electronically Signed By:Safia Saucedo
[2018-07-29] MEDS: QUEtiapine FUMARATE 100 MG TAB PO SCH (19:40)
[2018-07-30] MEDS: RISPERIDONE 1 MG ODT TAB SL SCH (07:45)
--- NOTE | 2018-07-30 09:00 | SOAPPROG ---
SOAP Progress Note Assessment/Plan: Assessment: Schizophrenia. Slight improvement noted; notably patient no longer expressing AH (see subjective/objective note). Patient is not safe to discharge at this time as patient continues to exhibit signs of psychosis, and express psychosis symptoms. Patient requires continued inpatient care because of current psychosis, and requires inpatient level of care to stabilize to no longer be gravely disabled due to mental illness. Patient is unable to communicate his basic needs, unable to test reality, and continues to require prompting and direction from staff for ADLs. Patient exhibits inability to provide for himself, neglecting self-care, withdrawn from social interactions, currently shows inability to maintain any appropriate aspect of personal responsibility as an adult. Support system has inability to manage functional impairment at lower level of care. Due to patients history of medication non-adherence, patient could benefit from OLSON prior to discharge with second loading dose of Invega Sustenna scheduled to be administered on . Patient could benefit from continued inpatient hospitalization for crisis stabilization, safety, and medication evaluation. Plan: 1. Psychotropic medications: After reviewing options, risks, and benefits patient agrees to continue current medications and agrees to Invega Sustenna second loading dose 156 mg IM on prior to discharge. No other medication changes at this time as more time is needed to determine ongoing tolerability and efficacy. Plan is to continue to observe patient for response and side effects from medications, and ongoing monitoring and evaluation. 2. Review with patient informed consent and recommendations for psychotropic medication treatment listed below 3. Labs: no additional labs at this time 4. Therapy: continue milieu and group therapy 5. Further investigation including gathering information from patients relatives and review of past case records to inform treatment plan. 6. Safety/Wellness plan and follow-up outpatient appointments to be established prior to discharge. Next steps are for patient to meet with housekeeper caregiver to plan a safe discharge plan and establish outpatient services for ongoing treatment. 7. Confer with inpatient treatment team regarding treatment plan. 8. Psychosocial stressors addressed through upper caser 9. Legal status: M1 10. Consider discharge next week if patient is in stable condition, safe, and has a safe discharge plan. 11. Substance abuse interventions: cocaine PSYCHOTROPIC MEDICATION TREATMENT INFORMED CONSENT and RECOMMENDATIONS: Review nature of condition, diagnosis, and prognosis. Review nature and purpose of psychotropic medication treatment. Review type of psychotropic medications being ordered. Review risk and benefits of psychotropic medication treatment. Review probable length of time patient will need to take medications. Review risk and benefits of not undergoing psychotropic medication treatment. Review alternative treatments to psychotropic medications. Review psychotropic medications contraindications, drug-drug interactions, side effects, and importance of reporting any side effects to a psychiatric provider or nurse during inpatient hospitalization, and upon discharge to patients psychiatric outpatient provider, primary care provider, or other health career consultant. Review importance of asking a nurse, psychiatric provider, or primary care provider any questions or problems concerning the psychotropic medications. Verify patient understands the information that has been provided, and understands, accepts, and agrees to psychotropic medications. Review patients safety plan and importance of patient to report to staff while hospitalized if patient is ever a danger to self/others, or unable to care for self, and upon discharge, the importance for patient to contact [facility] or [facility], or go to the nearest emergency room, if patient is ever a danger to self/others, or unable to care for self. Recommend that upon discharge patient establish medication management treatment with a psychiatric provider, establishes routine therapy appointments, and follow-up with primary care provider. Verify patient understands and agrees to these recommendations. 07/30/18 08:58 Subjective: Following up with patient for evaluation of psychosis and safety. Patient reports, "Doing good, yes, doing okay." Patient expresses the following psychiatric symptoms none. Patient denies AH. Patient does not report undesirable side effects from the medications, and agrees to continue current medications. Patient agrees to Invega Sustenna second loading dose 156 mg IM on prior to discharge. Objective: Vital Signs Temp Pulse Resp BP Pulse Ox 36.6 C 92 14 134/69 H 96 07/30/18 06:00 07/30/18 06:00 07/30/18 06:00 07/30/18 06:00 07/30/18 06:00 NURSING REPORT: Consulted with nursing for update on patients progress in treatment. Nurses report patient is not engaged in treatment, is attending some groups, slept 8 hours, expresses the following psychiatric symptoms: anxiety, exhibits the following psychiatric symptoms: disorganized, thought blocking, withdrawn, appears to be attending to internal stimuli; is eating all meals, is agreeable to medications and taking as prescribed with no report of side effects, with no s/s of EPS/akathisia, and denies SI/HI, denies AH, denies VH, and denies delusions. MSE: The patient is a well-nourished male looking stated chronological age. Attire is appropriate dress is casual. Grooming status is appropriate. Ambulation is independent. Gait is normal and coordinated. Posture is normal. Eye contact is appropriate. Motor activity is appropriate with purposeful, organized, coordinated movements; with no involuntary movements. Attitude is cooperative. Patient appears distractible and does not relate well to this interviewer. Language production is spontaneous. Rate is hesitant. Latency of response is prolonged. Articulation is clear. Patient reports mood as okay with flat, constricted, and inappropriate affect. Patients thought process is disorganized, non-linear and illogical, with loose associations, nonsensical, and thought blocking. Patient does not report suicidal/homicidal thoughts, ideas, or plans. Patient denies auditory, visual hallucinations. Patient denies delusions. Patient appears to be attending to internal stimuli. Patients attention and concentration are poor. Patient is oriented to person, place, and time. Patients insight is poor. Patients judgment is poor. SUBSTANCE ABUSE BRIEF INTERVENTION: Brief intervention regarding the risks of cocaine abuse is provided to patient with goal to reduce the risk of harm that could result from the continued use of cocaine, with the general aim to investigate the problem, raise awareness of problem, develop a solution with the patient, recommend a specific change or activity, and motivate the patient toward change. Assess substance abuse behavior and give supportive advice about harm reduction, recommend a reduction in hazardous/at-risk consumption patterns, and facilitate referrals for additional specialized treatment with progressive care nurse. Intermediate goal is for the patient to quit/decrease frequency of use/attend a NA/AA meeting. Intervention focus on intermediate goals to allow for more immediate success in the treatment process to keep the patient motivated. Review following with patient: Cocaine use risks: Short-term : erratic and violent behavior, panic attacks, paranoia, psychosis; heart rhythm problems, heart attack; stroke, seizure, coma. Long-term: Loss of sense of smell, nosebleeds, nasal damage and trouble swallowing from snorting; infection and of bowel tissue from decreased blood flow; poor nutrition and weight loss; lung damage from smoking. OUTPATIENT SUBSTANCE ABUSE TREATMENT: Patient referred to outpatient provider and treatment for continued treatment related to substance abuse. - Time Spent With Patient Time Spent With Patient: 15 minutes, met with patient individually. 

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
[2018-07-30] MEDS: QUEtiapine FUMARATE 100 MG TAB PO SCH (20:25)
[2018-07-31] MEDS: RISPERIDONE 1 MG ODT TAB SL SCH (07:54)
--- NOTE | 2018-07-31 08:08 | SOAPPROG ---
SOAP Progress Note Assessment/Plan: Assessment: Schizophrenia. Slight improvement noted; notably patient no longer expressing AH; continues to exhibit signs of attending to internal stimuli as observed by this KAYAK MAKER and staff (see subjective/objective note). Patient is not safe to discharge at this time as patient continues to exhibit signs of psychosis, and express psychosis symptoms. Patient requires continued inpatient care because of current psychosis, and requires inpatient level of care to stabilize to no longer be gravely disabled due to mental illness. Patient is unable to communicate his basic needs, unable to test reality, and continues to require prompting and direction from staff for ADLs. Patient exhibits inability to provide for himself, neglecting self-care, withdrawn from social interactions, currently shows inability to maintain any appropriate aspect of personal responsibility as an adult. Support system has inability to manage functional impairment at lower level of care. Due to patients history of medication non- adherence, patient could benefit from OLSON prior to discharge with second loading dose of Invega Sustenna scheduled to be administered on . Patient could benefit from continued inpatient hospitalization for crisis stabilization, safety, and medication evaluation. Plan: 1. Psychotropic medications: After reviewing options, risks, and benefits patient agrees to continue current medications and agrees to Invega Sustenna second loading dose 156 mg IM on prior to discharge. No other medication changes at this time as more time is needed to determine ongoing tolerability and efficacy. Plan is to continue to observe patient for response and side effects from medications, and ongoing monitoring and evaluation. 2. Review with patient informed consent and recommendations for psychotropic medication treatment listed below 3. Labs: no additional labs at this time 4. Therapy: continue milieu and group therapy 5. Further investigation including gathering information from patients relatives and review of past case records to inform treatment plan. 6. Safety/Wellness plan and follow-up outpatient appointments to be established prior to discharge. Next steps are for patient to meet with home care liaison to plan a safe discharge plan and establish outpatient services for ongoing treatment. 7. Confer with inpatient treatment team regarding treatment plan. 8. Psychosocial stressors addressed through case aide 9. Legal status: [facility] 10. Consider discharge Sunday if patient is in stable condition, safe, and has a safe discharge plan. 11. Substance abuse interventions: cocaine PSYCHOTROPIC MEDICATION TREATMENT INFORMED CONSENT and RECOMMENDATIONS: Review nature of condition, diagnosis, and prognosis. Review nature and purpose of psychotropic medication treatment. Review type of psychotropic medications being ordered. Review risk and benefits of psychotropic medication treatment. Review probable length of time patient will need to take medications. Review risk and benefits of not undergoing psychotropic medication treatment. Review alternative treatments to psychotropic medications. Review psychotropic medications contraindications, drug-drug interactions, side effects, and importance of reporting any side effects to a psychiatric provider or nurse during inpatient hospitalization, and upon discharge to patients psychiatric outpatient provider, primary care provider, or other health palliative care nurse. Review importance of asking a nurse, psychiatric provider, or primary care provider any questions or problems concerning the psychotropic medications. Verify patient understands the information that has been provided, and understands, accepts, and agrees to psychotropic medications. Review patients safety plan and importance of patient to report to staff while hospitalized if patient is ever a danger to self/others, or unable to care for self, and upon discharge, the importance for patient to contact [facility] or [facility], or go to the nearest emergency room, if patient is ever a danger to self/others, or unable to care for self. Recommend that upon discharge patient establish medication management treatment with a psychiatric provider, establishes routine therapy appointments, and follow-up with primary care provider. Verify patient understands and agrees to these recommendations. 07/31/18 08:06 Subjective: Following up with patient for evaluation of psychosis and safety. Patient reports, "Doing good. Yes, doing good." Patient expresses the following psychiatric symptoms none. Patient denies AH. Patient does not report undesirable side effects from the medications, and agrees to continue current medications. Patient agrees to Invega Sustenna second loading dose 156 mg IM on prior to discharge. Patient reports he plans to return to his parents home in [place] after discharge and continue treatment at [facility] in [place]. Objective: Vital Signs Temp Pulse Resp BP Pulse Ox 36.7 C 89 18 117/72 94 07/31/18 06:00 07/31/18 06:00 07/31/18 06:00 07/31/18 06:00 07/31/18 06:00 NURSING REPORT: Consulted with nursing for update on patients progress in treatment. Nurses report patient is engaged in treatment, is attending some groups, slept 8 hours, expresses the following psychiatric symptoms: anxiety, exhibits the following psychiatric symptoms: disorganized, thought blocking, attending to internal stimuli; is eating all meals, is agreeable to medications and taking as prescribed with no report of side effects, with no s/s of EPS/ akathisia, and denies SI/HI, denies AH, denies VH, and denies delusions. MSE: The patient is a well-nourished male looking stated chronological age. Attire is appropriate dress is casual. Grooming status is appropriate. Ambulation is independent. Gait is normal and coordinated. Posture is normal. Eye contact is appropriate. Motor activity is appropriate with purposeful, organized, coordinated movements; with no involuntary movements. Attitude is cooperative. Patient appears distractible and does not relate well to this interviewer. Language production is spontaneous. Rate is hesitant. Latency of response is prolonged. Articulation is clear. Patient reports mood as okay with flat, constricted, and inappropriate affect. Patients thought process is disorganized, non-linear and illogical, with loose associations, nonsensical, and thought blocking. Patient does not report suicidal/homicidal thoughts, ideas, or plans. Patient denies auditory, visual hallucinations. Patient denies delusions. Patient appears to be attending to internal stimuli. Patients attention and concentration are poor. Patient is oriented to person, place, and time. Patients insight is poor. Patients judgment is poor. SUBSTANCE ABUSE BRIEF INTERVENTION: Brief intervention regarding the risks of cocaine abuse is provided to patient with goal to reduce the risk of harm that could result from the continued use of cocaine, with the general aim to investigate the problem, raise awareness of problem, develop a solution with the patient, recommend a specific change or activity, and motivate the patient toward change. Assess substance abuse behavior and give supportive advice about harm reduction, recommend a reduction in hazardous/at-risk consumption patterns, and facilitate referrals for additional specialized treatment with customer care team coach. Intermediate goal is for the patient to quit/decrease frequency of use/attend a NA/AA meeting. Intervention focus on intermediate goals to allow for more immediate success in the treatment process to keep the patient motivated. Review following with patient: Cocaine use risks: Short-term : erratic and violent behavior, panic attacks, paranoia, psychosis; heart rhythm problems, heart attack; stroke, seizure, coma. Long-term: Loss of sense of smell, nosebleeds, nasal damage and trouble swallowing from snorting; infection and of bowel tissue from decreased blood flow; poor nutrition and weight loss; lung damage from smoking. OUTPATIENT SUBSTANCE ABUSE TREATMENT: Patient referred to outpatient provider and treatment for continued treatment related to substance abuse. - Time Spent With Patient Time Spent With Patient: 15 minutes, met with patient individually. 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
--- NOTE | 2018-07-31 13:59 | ASMTCMCOM ---
CM Note CM Note Notes: CC checked in with ct. continues to have a very flat affect and his answers are very short. He said that he is doing "fine". He denied experiencing SI and AH. He is fine with going back home to living with parents. A family meeting is scheduled for Sun. at 11:30am ahead of his discharge. Date Signed: 07/31/2018 01:58 PM Electronically Signed By:Yue Santiago
--- NOTE | 2018-08-01 06:41 | SOAPPROG ---
SOAP Progress Note Assessment/Plan: Assessment: Schizophrenia. Slight improvement noted; notably patient no longer expressing AH; continues to exhibit signs of attending to internal stimuli as observed by this SUPERVISOR BODY ASSEMBLY and staff (see subjective/objective note). Patient is not safe to discharge at this time as patient continues to exhibit signs of psychosis, and express psychosis symptoms. Patient requires continued inpatient care because of current psychosis, and requires inpatient level of care to stabilize to no longer be gravely disabled due to mental illness. Due to patients history of medication non-adherence, patient could benefit from OLSON prior to discharge with second loading dose of Invega Sustenna scheduled to be administered today. Patient could benefit from continued inpatient hospitalization for crisis stabilization, safety, and medication evaluation. Plan: 1. Psychotropic medications: After reviewing options, risks, and benefits patient agrees to continue current medications and agrees to Invega Sustenna second loading dose 156 mg IM today. No other medication changes at this time as more time is needed to determine ongoing tolerability and efficacy. Plan is to continue to observe patient for response and side effects from medications, and ongoing monitoring and evaluation. 2. Review with patient informed consent and recommendations for psychotropic medication treatment listed below 3. Labs: no additional labs at this time 4. Therapy: continue milieu and group therapy 5. Further investigation including gathering information from patients relatives and review of past case records to inform treatment plan. 6. Safety/Wellness plan and follow-up outpatient appointments to be established prior to discharge. Next steps are for patient to meet with disabilities caregiver to plan a safe discharge plan and establish outpatient services for ongoing treatment. 7. Confer with inpatient treatment team regarding treatment plan. 8. Psychosocial stressors addressed through test case developer 9. Legal status: [facility] 10. Consider discharge Sunday if patient is in stable condition, safe, and has a safe discharge plan. 11. Substance abuse interventions: cocaine PSYCHOTROPIC MEDICATION TREATMENT INFORMED CONSENT and RECOMMENDATIONS: Review nature of condition, diagnosis, and prognosis. Review nature and purpose of psychotropic medication treatment. Review type of psychotropic medications being ordered. Review risk and benefits of psychotropic medication treatment. Review probable length of time patient will need to take medications. Review risk and benefits of not undergoing psychotropic medication treatment. Review alternative treatments to psychotropic medications. Review psychotropic medications contraindications, drug-drug interactions, side effects, and importance of reporting any side effects to a psychiatric provider or nurse during inpatient hospitalization, and upon discharge to patients psychiatric outpatient provider, primary care provider, or other health wound care rn. Review importance of asking a nurse, psychiatric provider, or primary care provider any questions or problems concerning the psychotropic medications. Verify patient understands the information that has been provided, and understands, accepts, and agrees to psychotropic medications. Review patients safety plan and importance of patient to report to staff while hospitalized if patient is ever a danger to self/others, or unable to care for self, and upon discharge, the importance for patient to contact [facility] or [facility], or go to the nearest emergency room, if patient is ever a danger to self/others, or unable to care for self. Recommend that upon discharge patient establish medication management treatment with a psychiatric provider, establishes routine therapy appointments, and follow-up with primary care provider. Verify patient understands and agrees to these recommendations. 08/01/18 06:40 Subjective: Following up with patient for evaluation of psychosis and safety. Patient reports, "Doing good." Patient expresses the following psychiatric symptoms none. Patient denies AH. Patient does not report undesirable side effects from the medications, and agrees to continue current medications. Patient agrees to Invega Sustenna second loading dose 156 mg IM today. Patient reports he plans to return to his parents home in [place] after discharge and continue treatment at [facility] in [place]. Objective: Vital Signs Temp Pulse Resp BP Pulse Ox 36.7 C 89 18 117/72 94 07/31/18 06:00 07/31/18 06:00 07/31/18 06:00 07/31/18 06:00 07/31/18 06:00 NURSING REPORT: Consulted with nursing for update on patients progress in treatment. Nurses report patient is engaged in treatment, is attending some groups, slept 8 hours, expresses the following psychiatric symptoms: anxiety, exhibits the following psychiatric symptoms: anxious; is eating all meals, is agreeable to medications and taking as prescribed with no report of side effects , with no s/s of EPS/akathisia, and denies SI/HI, denies AH, denies VH, and denies delusions. MSE: The patient is a well-nourished male looking stated chronological age. Attire is appropriate dress is casual. Grooming status is appropriate. Ambulation is independent. Gait is normal and coordinated. Posture is normal. Eye contact is appropriate. Motor activity is appropriate with purposeful, organized, coordinated movements; with no involuntary movements. Attitude is cooperative. Patient appears attentive and relates well to this interviewer. Language production is spontaneous. Rate is hesitant. Latency of response is prolonged. Articulation is clear. Patient reports mood as okay with flat, constricted, and inappropriate affect. Patients thought process is fairly linear and logical. Patient does not report suicidal/homicidal thoughts, ideas , or plans. Patient denies auditory, visual hallucinations. Patient denies delusions. Patient does not appear to be attending to internal stimuli. Patients attention and concentration are poor. Patient is oriented to person, place, and time. Patients insight is poor. Patients judgment is poor. SUBSTANCE ABUSE BRIEF INTERVENTION: Brief intervention regarding the risks of cocaine abuse is provided to patient with goal to reduce the risk of harm that could result from the continued use of cocaine, with the general aim to investigate the problem, raise awareness of problem, develop a solution with the patient, recommend a specific change or activity, and motivate the patient toward change. Assess substance abuse behavior and give supportive advice about harm reduction, recommend a reduction in hazardous/at-risk consumption patterns, and facilitate referrals for additional specialized treatment with personal care assistant. Intermediate goal is for the patient to quit/decrease frequency of use/attend a NA/AA meeting. Intervention focus on intermediate goals to allow for more immediate success in the treatment process to keep the patient motivated. Review following with patient: Cocaine use risks: Short-term : erratic and violent behavior, panic attacks, paranoia, psychosis; heart rhythm problems, heart attack; stroke, seizure, coma. Long-term: Loss of sense of smell, nosebleeds, nasal damage and trouble swallowing from snorting; infection and of bowel tissue from decreased blood flow; poor nutrition and weight loss; lung damage from smoking. OUTPATIENT SUBSTANCE ABUSE TREATMENT: Patient referred to outpatient provider and treatment for continued treatment related to substance abuse. - Time Spent With Patient Time Spent With Patient: 15 minutes, met with patient individually. 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
[2018-08-01] MEDS ORDERED: PALIPERIDONE PALMITATE 156 MG/ML SYR IM ONE (09:00)
[2018-08-01] MEDS: RISPERIDONE 1 MG ODT TAB SL SCH (09:41)
--- NOTE | 2018-08-01 14:17 | ASMTCMCOM ---
CM Note CM Note Notes: CC checked in with ct. He reported feeling very anxious in the last three days. CC suggested that he might be anxious because he is being discharge tomorrow and ct. said that this might be true. Ct. appeared more animated and was able to carry light conversation. Family meeting is scheduled for tomorrow at 11:30. Ct. will discharge to the care of his parents. Date Signed: 08/01/2018 02:14 PM Electronically Signed By:Yue Santiago
[2018-08-02 06:44] VITALS: BP 123/76
--- NOTE | 2018-08-02 11:48 | ASMTCMCOM ---
CM Note CM Note Notes: Parents came in for a family meeting ahead of ct.'s discharge. CAN RECONDITIONER nurse explained ct.'s new medication (injuctable) and parents had a lot of questions about it. Briefly discussed ct.'s occasional resentment toward parents but ct. was not able to elaborate or discuss different coping strategies. Ct. has follow up appointments with his treatment team at [facility] next week. Meeting was conducted with an production engineer track. Date Signed: 08/02/2018 11:47 AM Electronically Signed By:Yue Santiago
--- NOTE | 2018-08-02 12:10 | BDS ---
[f rep st] BEHAVIORAL HEALTH DISCHARGE SUMMARY REASON FOR ADMISSION: From the ED note dated 07/23/2018, patient presented to the emergency department on an M1 hold after taking Wellbutrin tablets. The patient also reported using cocaine and alcohol. The patient reported he did this to harm himself and reported suicidal ideation. The patient was admitted involuntarily and on an M1 hold due to being a danger to himself and was admitted for safety, crisis stabilization, and medication management. ADMITTING DIAGNOSES: 1. Schizophrenia. 2. Stimulant-induced psychotic disorder with hallucinations. 3. Alcohol use disorder, moderate. 4. Cocaine abuse. ADMISSION PHYSICAL EXAM: The patient was seen for a hospitalist H and P consult on 07/24/2018, for medical clearance for inpatient psychiatric hospitalization and treatment. The patient was medically cleared for inpatient psychiatric hospitalization and treatment. For further details, please refer to hospitalist's H and P consult document dated 07/24/2018. ADMISSION LABS: 1. CBC within normal limits. 2. BMP within normal limits except chloride was elevated at 112. Anion gap was low at 5. 3. Hemoglobin A1c within normal limits at 5.5. 4. Calcium was low at 7.6. 5. Liver function within normal limits. 6. Lipid panel within normal limits except cholesterol was low at 139 and HDL cholesterol was low at 33. 7. Toxicology screen negative for all substances screened and negative for ethyl alcohol. MAJOR PROCEDURES OR TESTS: None. HOSPITAL COURSE: The most prominent symptoms and behaviors while the patient was here were withdrawn from social interactions and reports of auditory hallucinations and command auditory hallucinations to harm self. Treatment modalities utilized were milieu and group therapy. Risperidone was started and titrated to 3 mg p.o. daily to target psychosis symptoms, was tolerated with no report of side effects and with good response. Invega Sustenna 234 mg IM 1st loading dose was administered on 07/29/2018, was tolerated with no report of side effects. Invega Sustenna 156 mg IM was administered on 08/01/2018, was tolerated with no report of side effects and with good response. Patient has improved considerably with no signs of psychiatric symptoms and no psychiatric symptoms expressed. Patient reports he has improved since admission, states to be in stable condition, feels safe to discharge, and he contracts for safety. Patients response to treatment was good. There were no adverse or unexpected results of treatment. The patient was safe throughout stay, active in treatment , engaged in groups, and was appropriate with staff. Patient met with treatment team prior to discharge to assess readiness to discharge and review discharge plan. The treatment team consensus is the patient in stable condition , has a safe discharge plan, and is ready to discharge today. CONDITION AT DISCHARGE: Patient is in stable condition and is no longer a danger to self or others, and is not gravely disabled due to mental illness. Patient is no longer in need of inpatient level of care, and can be safely and effectively treated within the community. The patients level of risk at time of discharge is low. MSE: The patient is casually dressed and with good hygiene , and looks stated age. Patient is sitting, posture is upright, and position is relaxed. Patient appears awake, alert, and responds appropriately and reasonably during interview. Patient is engaged, relates well to interviewer, and emotional facial expression is appropriate to situation and changes appropriately with topic. Patient is cooperative, makes comfortable eye contact , and movements are voluntary, deliberate, coordinated, and smooth and even with no inappropriate movements. Patient makes laryngeal sounds effortlessly and shares conversation appropriately; pace of conversation is appropriate, and stream of talking is fluent; articulation is clear and understandable; word choice is effortless and appropriate for education level; completes sentences, occasionally pausing to think; rate and volume are appropriate for interview and setting. Patient reports mood as euthymic. Patients affect is stable with full variable range, congruent with mood, and appropriate to speech and circumstances. Patient has linear and logical thinking, with no loose associations, tangential thought, thought blocking, concrete thinking, or any other signs of formal thought disorder. Patient denies suicidal and homicidal ideation, and denies hallucinations and delusions. Patient appears to be a reliable historian with sound judgement and good insight into current condition. Patient has no apparent dysfunction in recent or remote memory noted , and no evidence of gross cognitive dysfunction noted at any point during the interview. DISCHARGE DIAGNOSES: 1. Schizophrenia. 2. Alcohol use disorder, moderate. 3. Cocaine abuse. CURRENT MEDICATIONS: After reviewing options, risks, and benefits with the patient, the patient agrees to continue Invega Sustenna with maintenance dose due on 08/29/2018. Maintenance dosage to be determined by the patient's outpatient psychiatrist. Medication is reviewed with the patient at time of discharge to ensure accuracy and patient understanding. DISPOSITION: Patient left hospital independently and voluntarily with his parents after meeting with this SHOE STOCK ASSOCIATE and child care for a family meeting and plans to return with his parents to their home in [place], [place] where he plans to live. FOLLOWUP: medicaid service coordinator reports the appropriate outpatient follow-up services have been established and outpatient appointments have been scheduled. The patient received written instructions with times and dates of outpatient follow-up appointments. The following follow-up recommendations were provided to the patient at discharge: Continue psychotropic medications as prescribed and attend appointments as scheduled. Report any side effects to a psychiatric outpatient provider, a primary care provider, or other health attending ambulatory care. Address any questions or problems concerning the psychotropic medications with a psychiatric outpatient provider, a primary care provider, or other health attending ambulatory care. Contact [facility] or [facility], or go to the nearest emergency room, if you are ever a danger to yourself/others, or unable to care for yourself. As soon as possible, establish a routine medication management treatment with a psychiatric provider, establish routine therapy appointments, and follow-up with a primary care provider. SUBSTANCE ABUSE BRIEF INTERVENTION: Brief intervention regarding the risks of cocaine abuse is provided to patient with goal to reduce the risk of harm that could result from the continued use of cocaine, with the general aim to investigate the problem, raise awareness of problem, develop a solution with the patient, recommend a specific change or activity, and motivate the patient toward change. Assess substance abuse behavior and give supportive advice about harm reduction, recommend a reduction in hazardous/at-risk consumption patterns, and facilitate referrals for additional specialized treatment with child care. Intermediate goal is for the patient to quit/decrease frequency of use/attend a NA/AA meeting. Intervention focus on intermediate goals to allow for more immediate success in the treatment process to keep the patient motivated. Review following with patient: Cocaine use risks: Short-term : erratic and violent behavior, panic attacks, paranoia, psychosis; heart rhythm problems, heart attack; stroke, seizure, coma. Long-term: Loss of sense of smell, nosebleeds, nasal damage and trouble swallowing from snorting; infection and of bowel tissue from decreased blood flow; poor nutrition and weight loss; lung damage from smoking. OUTPATIENT SUBSTANCE ABUSE TREATMENT: Patient referred to outpatient provider and treatment for continued treatment related to substance abuse. LEGAL COURSE: The patient was admitted involuntarily on an M1 hold for involuntary inpatient psychiatric hospitalization. The patient discharged today independently and voluntarily. The patient was placed on a short-term certification during the course of his hospitalization and short-term certification was terminated at time of discharge. ATTITUDE AT TIME OF DISCHARGE: The patients attitude was positive at time of discharge, and patient reports looking forward to discharging today. The patient reports he feels safe to discharge, is no longer a danger to himself or others, is in stable condition, and contracts for safety. Patient states he will continue medications as prescribed, and establish medication management treatment with an outpatient provider after discharge. Patient reports he understands the information that has been provided to him, and he understands, accepts, and agrees to psychotropic medications. Patient describes internal protective factors as the coping skills he has learned while hospitalized here, and he plans to continue to practice these coping skills after discharge. FAMILY MEETING: This SHOE STOCK ASSOCIATE, child care. and adjunct professor of [employer], at patients request , met with patient and patient's parents at time of discharge to assess readiness to discharge and review discharge plan. Meeting consensus is patient is safe to discharge today and has a safe discharge plan. LABS AND STUDIES: There were no pending labs or studies at time of discharge. ADVANCE DIRECTIVES: There were no advance directives on file, and patient was full code during this hospitalization. The following psychotropic medication treatment informed consent and recommendations were provided to the patient at time of discharge. Patient reports he understands, accepts, and agrees to the information that has been provided. PSYCHOTROPIC MEDICATION TREATMENT INFORMED CONSENT and RECOMMENDATIONS: Review nature of condition, diagnosis, and prognosis. Review nature and purpose of psychotropic medication treatment. Review type of psychotropic medications being prescribed. Review risk and benefits of psychotropic medication treatment. Review probable length of time will need to take medications. Review risk and benefits of not undergoing psychotropic medication treatment. Review alternative treatments to psychotropic medications. Review psychotropic medications contraindications, side effects, and importance of reporting any side effects to a psychiatric provider, primary care provider, or other health attending ambulatory care. Review importance of asking a psychiatric provider or primary care provider any questions or problems concerning the psychotropic medications. Review safety plan and the importance to contact [facility] or [facility] , or go to the nearest emergency room, if ever a danger to yourself/others, or unable to care for yourself. Recommend upon discharge to establish routine medication management treatment with a psychiatric provider, establish routine therapy appointments, and follow-up with a primary care provider. Verify patient understands, accepts, and agrees to the information that has been provided. /[id number]
== END 2018-08-02 11:50 | disposition home or self-care (01) | DRG 885 ==
LOC: EDUNIT# → BBEH 22:57
PROVIDERS: ADMIT Psychiatry & Neurology Behavioral Neurology & Neuropsychiatry; ATTEND Psychiatry & Neurology Behavioral Neurology & Neuropsychiatry
DX: F20.9 Schizophrenia, unspecified (principal); Z72.89 Other problems related to lifestyle; F14.10 Cocaine abuse, uncomplicated; Z72.0 Tobacco use; I10 Essential (primary) hypertension; Z59.0 Homelessness
CPT/HCPCS: 80305; G0480; J2426